=== PATIENT | female | born 1940 | race Caucasian/White ===

== ENCOUNTER → 2018-09-15 | Outpatient (CLI) | payer MEDICARE | LOC: M SLEEP 20:00 | DX: G47.33 Obstructive sleep apnea (adult) (pediatric) (principal) | CPT/HCPCS: 95811 ==

== ENCOUNTER → 2019-06-26 | Outpatient (CLI) | payer MEDICARE ==
[~2019-06-26] MED LIST: ASPI-261 PO; CO-E200C PO; D32000CA PO; EZET10TA21 PO; FURO40TA2 PO; INSUR50VL SC; LIDOCAINE 1% MDV 20ML VIAL As Ordered ONE; LOSA100T50 PO; MIRA3350 PO; SIME125T PO; VITA40TA PO; [UNRECOGNIZED DRUG - CODE] PO
[2019-06-26 11:12] VITALS: BP 150/69
--- NOTE | 2019-06-27 11:29 | REP ---
ULTRASOUND-GUIDED LIVER BIOPSY The procedure was performed under the direct supervision of Dr. Blanco. The patient has a history of a 2 cm nodule in the left hepatic lobe seen on a previous ultrasound dated 05/21/2019. The risks and benefits of the procedure were explained to the patient and informed consent was obtained. The nodule in the left lobe of the liver was localized using ultrasound guidance. The skin was prepped and draped in a sterile fashion. 1% lidocaine was used as a local anesthetic. Using ultrasound guidance a 19/20 gauge coaxial needle biopsy system was inserted and advanced into the nodule. Five core biopsy samples were obtained and sent to lab. The patient tolerated the procedure well and there were no immediate complications. After the appropriate amount of monitored convalescence the patient was discharged from the department. Reviewed by VERONIKA Vásquez 06/26/2019 04:14 P Electronically Signed by Antony Blanco MD 06/27/2019 11:21 A
== END ==
LOC: M IRPRO 08:21
PROVIDERS: ATTEND Internal Medicine Gastroenterology
DX: C22.9 Malignant neoplasm of liver, not specified as primary or secondary (principal)

== ENCOUNTER 2019-09-30 15:35 | Inpatient (IN) | payer MEDICARE ==
[~2019-09-30] VITALS: Ht 154.9 cm; Wt 116.9 kg
[~2019-09-30 15:35] MED LIST changes: -LIDOCAINE 1% MDV 20ML VIAL As Ordered ONE
[2019-09-30 19:00] LABS: HEMATOCRIT 42.4 % (36.0-47.0); HEMOGLOBIN 13.7 g/dl (12.0-15.5); MEAN CORPUSCULAR HEMOGLOBIN 32.2 pg (27.0-33.0); MEAN CORPUSCULAR HGB CONC 32.3 g/dl (32.0-36.5); MEAN CORPUSCULAR VOLUME 99.8 fl (80.0-96.0); PLATELET COUNT, AUTOMATED 266 10^3/uL (150-450); RED BLOOD COUNT 4.25 10^6/uL (4.00-5.40); WHITE BLOOD COUNT 12.9 10^3/uL (4.0-10.0)
[2019-09-30 19:30] LABS: ALBUMIN 1.9 GM/DL (3.2-5.2); ALT/SGPT 36 U/L (12-78); BILIRUBIN,TOTAL 8.9 MG/DL (0.2-1.0); BLOOD UREA NITROGEN 31 MG/DL (7-18); CARBON DIOXIDE LEVEL 27 MEQ/L (21-32); CHLORIDE LEVEL 106 MEQ/L (98-107); CREATININE FOR GFR 1.15 MG/DL (0.55-1.30); GLOMERULAR FILTRATION RATE 48.2 (>32); GLUCOSE, FASTING 94 MG/DL (70-100); POTASSIUM SERUM 4.1 MEQ/L (3.5-5.1); SODIUM LEVEL 141 MEQ/L (136-145); TOTAL PROTEIN 5.8 GM/DL (6.4-8.2)
--- NOTE | 2019-09-30 19:40 | HPEPDOC ---
[facility] Medical History & Physical Date of Admission Sep 30, 2019 Date of Service: Sep 30, 2019 Attending Physician: CORBIN WOODARD MD History and Physical TIME OF SERVICE: 8:30 PM CHIEF COMPLAINT: Loss of consciousness HISTORY OF PRESENT ILLNESS: This is an 79-year-old female who was found on the floor in her bedroom yesterday; the patient took her insulin, but went to bed without eating dinner. She remembers waking up and trying get up to get some food, but was unable to eat because she felt lightheaded and nauseous and ended up falling to the ground. She thinks she lost consciousness, and is unsure for how long she was unconscious; the event was unwitnessed. Per records from [facility] when EMS found her, her serum glucose was 50. Currently the patient is complaining of difficulty breathing, back pain and stomach distention that has been going on for a while; she was referred for paracentesis but has not made an appointment yet. 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 Insulin-dependent diabetes mellitus. Chronic hypertension GERD Dyslipidemia. Lumbar radiculopathy. Carpal tunnel syndrome SOCIAL HISTORY: She does not smoke FAMILY HISTORY: Diabetes Her daughter of colon cancer with metastases to the liver ALLERGIES: Please see below. HOME MEDICATIONS: Please see below. PHYSICAL EXAMINATION: VITAL SIGNS: Please see below. GEN: well nourished / well developed/ NAD INTEGUMENT: markedly jaundice / there is rubor, dulor and calor of the skin at the anterior abdominal wall / the skin at the lower abdomen has peau d'orange changes without rubor, dulor or calor HEENT: normocephalic / atraumatic / lips acyanotic /mucus membranes moist and p ink / she has marked scleral icterus CVS: RRR/NMRG/ / radial pulses intact /restraints lower extremity edema LUNGS: She is able to speak full sentences without stopping to take a breath / chest x-ray, singh, wheezing, even audible without the stethoscope ABDOMEN: tense ascites/the abdomen is firm and tender with palpation/am unable to palpate a liver or spleen MSK/EXTREMITIES: range of motion intact in all 4 extremities NEURO: CN 2-12 are grossly intact / speech is not dysarthric PSYCH: alert and oriented / able to understand and follow all commands LABORATORY DATA: From [facility]: WBC 13, hemoglobin 14.8, platelets 267. Sodium 142, potassium 3.8, chloride 104, bicarbonate 30, B and 30, creatinine 0.9, glucose 68. Lactic acid 2.7 IMAGING: From [facility]: CT of abdomen and pelvis revealed the presence of ascites and edema of the pannus, possibly due to cellulitis EKG: Normal sinus rhythm with a heart rate of 79 ASSESSMENT: is an 79-year-old with a past medical history of metastatic biliary cancer, IDDM, chronic hypertension, lumbar radiculopathy and GERD, who will be admitted primarily for management of hypoglycemia. PLAN: 1. Syncope, likely secondary to Hypoglycemia She has IDDM. Plan: Admit to PCU/telemetry/start D5NS, check orthostatics once/fall precautions/follow-up frequent Accu-Cheks/follow-up A1c/hypoglycemia protocol / hold anti-glycemic agents for at least the next 24 hours to give her body time to clear the insulin/diabetic diet 2. Malignant ascites. Plan: Follow-up INR/consult Dr. Mark for therapeutic paracentesis and pigta il placement 3. Dyspnea and wheezing. Possibly due to bronchitis and mass effect of ascites in the abdomen. Plan: Elevate head of bed/Follow-up respiratory panel/nebs when necessary/treat ascites/influenza, pneumococcal vaccine been ordered for tomorrow morning 4. Mild Anterior Abdominal Wall Cellulitis Her WBC # is slightly elevated Plan: PO Bactrim 5. Chronic hypertension. Plan: Continue losartan and furosemide 6. Lumbar radiculopathy. Plan: Continue trazodone / lidocane patch 7. Obesity Her BMI is 50.2 kg/m She is also diabetic This complicates care. Plan: Follow-up BMI after paracentesis/she can f/u w PCP for STOP BANG questionnaire & crepe sole scourer consult DVT prophylaxis with SCDs pending therapy paracentesis. Disposition likely home after more than 2 midnight's stay Laboratory Data Labs 24H Laboratory Tests 2 09/30/19 18:49: Nucleated Red Blood Cells % (auto) 0.0, Anion Gap 8, Glomerular Filtration Rate 48.2, Calcium Level 9.0, Total Bilirubin 8.9H, Aspartate Amino Transf (AST/SGOT) 111H, Alanine Aminotransferase (ALT/SGPT) 36, Alkaline Phosphatase 180H, Total Protein 5.8L, Albumin 1.9L, Albumin/Globulin Ratio 0.49L CBC/BMP Laboratory Tests 09/30/19 18:49 Home Medications Scheduled Pantoprazole Sodium (Pantoprazole Sodium) 40 Mg Tablet.dr, 40 MG PO DAILY Trazodone HCl (Trazodone HCl) 50 Mg Tablet, 100 MG PO QHS Scheduled PRN Hyoscyamine Sulfate (Hyoscyamine Sulfate) 0.125 Mg Tab.subl, 0.125 MG PO Q4HP PRN for TERMINAL SECRETIONS Use sublingually if unable to swallow Ibuprofen (Ibuprofen) 200 Mg Capsule, 400 MG PO Q6H PRN for PAIN Lorazepam (Lorazepam) 0.5 Mg Tablet, 0.5 MG PO Q4HP PRN for ANXIETY/AGITATION Use sublingually if unable to swallow Morphine Sulfate (Morphine Sulfate) 100 Mg/5 Ml Solution, 0.25-1 ML PO Q2H PRN for PAIN OR DYSPNEA Use sublingually if unable to swallow Allergies Coded Allergies: latex (Verified Allergy, Mild, RASH, 09/30/19) codeine (Verified Adverse Reaction, Mild, NAUSEA / VOMITTING, 09/30/19) morphine (Verified Adverse Reaction, Mild, NAUSEA / VOMITTING, 09/30/19) A-FIB/CHADSVASC A-FIB History Current/History of A-Fib/PAF?: No Current PO Anticoag Therapy: CORBIN Regan MD Sep 30, 2019 19:40
[2019-09-30] MEDS ORDERED: GLUCAGON FOR INJ 1 MG VIAL (J1610) SC PRN (19:45)
[2019-09-30] MEDS ORDERED: DEXTROSE 50% 50 ML SYRINGE IV PRN (19:45)
[2019-09-30 20:00] VITALS: BP 120/60
[2019-09-30] MEDS ORDERED: INSUR50VL SC (20:21)
[2019-09-30] MEDS ORDERED: PANT-23 PO (20:21)
[2019-09-30] MEDS ORDERED: [UNRECOGNIZED DRUG - CODE] PO (20:21)
[2019-09-30] MEDS ORDERED: D3 22000 PO (20:21)
[2019-09-30] MEDS ORDERED: IBUP200C28 PO (20:21)
[2019-09-30] MEDS ORDERED: MULTCAP PO (20:21)
[2019-09-30] MEDS ORDERED: K 10100T PO (20:21)
[2019-09-30] MEDS ORDERED: TRAZ1TAB10 PO (20:21)
[2019-09-30 20:27] LABS: TROPONIN I < 0.02 NG/ML (< 0.10)
[2019-09-30] MEDS ORDERED: HumaLOG INSULIN (NovoLOG) PER UNIT SC SCH (21:00)
[2019-09-30] MEDS: traZODone 50 MG TAB PO SCH (21:00)
[2019-09-30 21:36] LABS: INR 1.3; PROTHROMBIN TIME 15.9 SECONDS (11.8-14.0)
[2019-09-30] MEDS: GLUCOSE 4 GM CHEW TABLET PO PRN ×2 (21:48→22:11)
[2019-09-30] MEDS: D5W/0.9% SODIUM CHLORIDE 500 ML IV SCH (21:54)
[2019-09-30] MEDS: ALBUTEROL SULFATE 2.5 MG/0.5 ML INH NEB SOLN NEB PRN (22:26)
[2019-10-01] VITALS (8 sets, daily range): BP systolic 103–173; BP diastolic 49–70
[2019-10-01 00:59] LABS: HEMOGLOBIN A1c 6.9 %
[2019-10-01] MEDS: traZODone 50 MG TAB PO SCH ×2 (02:30→21:14)
[2019-10-01] MEDS: LIDOCAINE 5% (LIDODERM) PATCH TD SCH ×2 (02:31→21:13)
[2019-10-01] MEDS: BACTRIM 160MG/800MG DS TAB PO SCH ×3 (02:31→21:14)
[2019-10-01] MEDS: D5W/0.9% SODIUM CHLORIDE 500 ML IV SCH (05:19)
[2019-10-01 05:34] LABS: ALBUMIN 1.9 GM/DL (3.2-5.2); ALT/SGPT 41 U/L (12-78); BILIRUBIN,TOTAL 9.2 MG/DL (0.2-1.0); BLOOD UREA NITROGEN 34 MG/DL (7-18); CALCIUM LEVEL 8.6 MG/DL (8.8-10.2); CARBON DIOXIDE LEVEL 25 MEQ/L (21-32); CHLORIDE LEVEL 103 MEQ/L (98-107); CREATININE FOR GFR 1.37 MG/DL (0.55-1.30); GLOMERULAR FILTRATION RATE 39.4 (>32); GLUCOSE, FASTING 236 MG/DL (70-100); POTASSIUM SERUM 4.5 MEQ/L (3.5-5.1); SODIUM LEVEL 138 MEQ/L (136-145); TOTAL PROTEIN 5.6 GM/DL (6.4-8.2); TROPONIN I < 0.02 NG/ML (< 0.10)
[2019-10-01] MEDS ORDERED: HumaLOG INSULIN (NovoLOG) PER UNIT SC SCH ×4 (06:00→21:00)
[2019-10-01] MEDS: PROPRANOLOL 20 MG TAB PO SCH ×2 (08:53→21:13)
[2019-10-01] MEDS: ASPIRIN 325 MG TAB PO SCH (08:53)
[2019-10-01] MEDS: amLODIPine 5 MG TAB PO SCH (08:54)
[2019-10-01] MEDS: PANTOPRAZOLE 40MG TAB (PROTONIX) PO SCH (08:54)
[2019-10-01] MEDS: EZETIMIBE 10 MG TAB (ZETIA) PO SCH (08:54)
[2019-10-01] MEDS: MIRALAX *UNIT DOSE* 17GM PACKET PO SCH (08:54)
[2019-10-01] MEDS ORDERED: PHYTONADIONE 5 MG TAB PO SCH (09:00)
[2019-10-01] MEDS: **NOTE PATIENT COMMENT** MISC XX SCH (09:00)
[2019-10-01] MEDS ORDERED: FUROSEMIDE 40 MG TAB PO SCH (09:00)
[2019-10-01] MEDS ORDERED: FLUBLOK(EGG FREE)(QUAD)INFLUENZA VACC 0.5ML SYRINGE (90682)18YRS&OLDER IM ONE (09:00)
[2019-10-01] MEDS ORDERED: PREVNAR 13 VACCINE SYRINGE (CPT CODE:90670) IM ONE (09:00)
[2019-10-01] MEDS ORDERED: VITAMIN K 100 MCG PO SCH (09:00)
[2019-10-01] MEDS ORDERED: LOSARTAN 50 MG TAB PO SCH (09:00)
--- NOTE | 2019-10-01 10:05 | IPNPDOC ---
Text Note Date of Service The patient was seen on 10/01/19. NOTE SUBJECTIVE: Patient is seen at bedside. She continues to complain of abdominal distention, difficulty breathing, and back pain. She'll be going to get a Pleurx catheter/paracentesis with Dr. Mark this afternoon at 4:30. She denies any fevers. Her sugars have improved overnight, and this morning her point of care glucose was 252. Objective: VITAL SIGNS: Please see below. GENERAL: Elderly female, lying in bed, audible wheezing is noted that she is not in any acute distress INTEGUMENT: Area of erythema that is warm to touch on the anterior abdominal wall. HEENT: normocephalic / atraumatic / lips acyanotic /mucus membranes moist and pink / she has marked scleral icterus HEART: Heart sounds are faint but no murmurs, rubs, or gallops are appreciated. Regular rate and rhythm LUNGS: Diffuse expiratory and inspiratory wheezes. No rhonchi or rales. ABDOMEN: Distended with tense ascites. Tympanic to percussion. EXTREMITIES: Bilateral 2+ pitting edema in the lower extremities up to the knee, worse on the right leg which is the side she is laying on NEURO: Sensation intact throughout, 5 out of 5 muscle strength in each extremity, cranial nerves II through XII grossly intact, no asterixis is noted PSYCH: Answers questions appropriately LABORATORY DATA: See below ASSESSMENT: is an 79-year-old with a past medical history of metastatic biliary cancer, IDDM, chronic hypertension, lumbar radiculopathy and GERD, who will be admitted primarily for management of hypoglycemia. PLAN: 1. Syncope, likely secondary to Hypoglycemia. Sugars have improved overnight, point of care glucose this morning at 9 AM was 252. Sliding scale insulin discontinued in favor of basal insulin with Levemir 5 units twice a day, to be adjusted accordingly. A1c was 6.9. 2. Malignant ascites. Dr. Mark consulted, appreciate her help. Will be going down at 4:30 PM to get a Pleurx catheter/paracentesis. 3. Dyspnea and wheezing. Proventil nebs as needed. Shortness of breath most likely due to increased intra-abdominal pressure from her ascites. 4. Mild Anterior Abdominal Wall Cellulitis. Continue by mouth Bactrim 5. Chronic hypertension. Home Lasix and Cozaar held in favor of amlodipine and propranolol. Will reassess after her paracentesis is afternoon. 6. Lumbar radiculopathy. Continue trazodone and lidocaine patch. 7. Obesity. Complicating care DVT prophylaxis with SCDs pending therapy paracentesis. Disposition: Pending clinical improvement and optimization of her anti-glycemic agents, possibly the next 24-48 hours. VS,Fishbone, I+O VS, Fishbone, I+O Laboratory Tests 09/30/19 18:49 10/01/19 04:41 Vital Signs Date Time Temp Pulse Resp B/P (MAP) Pulse Ox O2 Delivery O2 Flow Rate FiO2 10/01/19 08:53 91 150/67 10/01/19 04:00 98.6 22 96 Room Air I&O- Last 24 Hours up to 6 AM 10/01/19 06:00 Intake Total 280 ml Output Total 0 ml Balance 280 ml GME ATTESTATION GME ATTESTATION My faculty preceptor for this patient encounter was physically present during the encounter and was fully available. All aspects of the patient interview, examination, medical decision making process, and medical care plan development were reviewed and approved by the faculty preceptor. The faculty preceptor is aware and concurs with the plan as stated in the body of this note and will attest to such by his/her cosignature. JOSE NICHOLS D.O. Oct 01, 2019 10:05
[2019-10-01] MEDS: LEVEMIR (INSULIN DETEMIR) 1 UNITS/0.01ML SC SCH ×2 (10:11→21:13)
[2019-10-01] MEDS: UNRESOLVED PATIENT OWN MED ORDER XX SCH (10:12)
[2019-10-01] MEDS: ALBUTEROL SULFATE 2.5 MG/0.5 ML INH NEB SOLN NEB PRN (10:14)
[2019-10-01] MEDS ORDERED: LIDOCAINE 1% MDV 20ML VIAL As Ordered ONE (15:42)
[2019-10-01] MEDS ORDERED: ceFAZolin 1GM INJ (J0690 PER 500MG) As Ordered ONE (15:56)
[2019-10-01] MEDS ORDERED: MIDAZOLAM INJ 2 MG/2 ML VIAL (J2250) As Ordered ONE (15:56)
[2019-10-01] MEDS ORDERED: fentaNYL 100 MCG/2 ML INJECTION (J3010) As Ordered ONE (15:56)
[2019-10-01] MEDS ORDERED: diphenhydrAMINE INJ 50MG/ML VIAL (J1200) As Ordered ONE (15:57)
--- NOTE | 2019-10-01 16:43 | POST-OPPD ---
Postoperative Procedure Note Date Of Procedure: Oct 01, 2019 Time Of Procedure: 16:42 PREOPERATIVE DIAGNOSIS: refractory ascites. liver cancer POSTOPERATIVE DIAGNOSIS: same FINDINGS: ascites PROCEDURE: pleurX placed SURGEON: hayde ANESTHESIA: local ESTIMATED BLOOD LOSS: < 5 ml COMPLICATIONS: none POSTOPERATIVE CONDITION: stable VELMA OSMAN MD Oct 01, 2019 16:43
[2019-10-01 18:49] LABS: BILIRUBIN, URINE MANUAL OBSCURED (NEGATIVE); GLUCOSE, URINE (UA) MANUAL OBSCURED mg/dL (NEGATIVE); KETONE, URINE MANUAL OBSCURED mg/dL (NEGATIVE); UROBILINOGEN, URINE MANUAL OBSCURED mg/dl (NORMAL)
[2019-10-01 19:03] LABS: AMORPHOUS SEDIMENT, URINE MOD AMOUNT (NEGATIVE); MUCUS, URINE MOD AMOUNT (NEGATIVE); SQUAMOUS EPITHELIAL CELL URINE MOD AMOUNT /hpf (SMALL AMT); TRANSITIONAL EPI CELLS, URINE MOD AMOUNT /hpf
[2019-10-01 19:04] LABS: HYALINE CAST, URINE TNTC /lpf (0-1)
[2019-10-01 19:05] LABS: BACTERIA, URINE SMALL AMOUNT
[2019-10-02] VITALS (13 sets, daily range): BP systolic 90–137; BP diastolic 45–60
[2019-10-02] MEDS: UNRESOLVED PATIENT OWN MED ORDER XX SCH (00:01)
[2019-10-02 05:39] LABS: HEMATOCRIT 43.1 % (36.0-47.0); HEMOGLOBIN 13.5 g/dl (12.0-15.5); MEAN CORPUSCULAR HEMOGLOBIN 32.3 pg (27.0-33.0); MEAN CORPUSCULAR HGB CONC 31.3 g/dl (32.0-36.5); MEAN CORPUSCULAR VOLUME 103.1 fl (80.0-96.0); PLATELET COUNT, AUTOMATED 216 10^3/uL (150-450); RED BLOOD COUNT 4.18 10^6/uL (4.00-5.40); WHITE BLOOD COUNT 12.2 10^3/uL (4.0-10.0)
[2019-10-02 06:05] LABS: ALBUMIN 1.7 GM/DL (3.2-5.2); BILIRUBIN,TOTAL 10.8 MG/DL (0.2-1.0); CALCIUM LEVEL 8.4 MG/DL (8.8-10.2); CREATININE FOR GFR 2.04 MG/DL (0.55-1.30); GLOMERULAR FILTRATION RATE 24.9 (>32); TOTAL PROTEIN 5.7 GM/DL (6.4-8.2)
--- NOTE | 2019-10-02 08:12 | REP ---
IR Ultrasound and fluoroscopy-guided abdominal PleurX placement. IR Ultrasound of the abdomen. Clinical information: Ascites. Liver cancer. Physician: Dr. Mark. Procedure: The patient was advised of the benefits, risks, and alternatives of the procedure and informed consent was obtained. A time-out was performed with verification of the patient's name, MRN, site of procedure and type of procedure to be performed. The patient was positioned in the supine position on the angiographic table. The site was prepped and draped in the usual sterile fashion. Moderate sedation was not appropriate given respiratory status but Fentanyl was administered for analgesia. The physician spent 45 minutes of continuous face to face time with the patient. Limited ultrasound of the abdomen reveals large volume ascites. A grocery store clerk radiograph reveals no gross abnormality. The anticipated puncture site was identified using sonographic guidance and the overlying skin and subcutaneous tissues were anesthetized with lidocaine. An 18 gauge needle was inserted under ultrasound guidance into the right upper quadrant. An Amplatz wire was advanced through the needle under fluoroscopy guidance into the peritoneum. The needle was removed and exchanged for a dilator, under fluoroscopy guidance. A small skin incision was made at the catheter insertion site. A second incision was made a small distance from original incision. The catheter was then subcutaneously tunneled from the exit site incision to the insertion site incision. The catheter insertion site was then serially dilated under fluoroscopy guidance and a peel-away sheath was then placed. The catheter was then passed through the peel-away sheath into the peritoneal cavity and the peel away sheath was removed. Placement in the peritoneal cavity was confirmed by the brisk return of ascetic fluid. 5.4 liters of ascitic fluid was drained. The dedicated catheter drainage cap was attached. The catheter insertion site was closed with monocryl. A sterile dressing was applied. The patient tolerated the procedure well and was returned to the PRU in stable condition. EBL: < 5 ml. Complications: None. Conclusion: 1. Ultrasound abdomen demonstrates ascites. 2. Successful placement of a tunneled peritoneal drainage catheter in the right upper quadrant. The patient requires dressing changes and drainage kit for drainage as-needed. Thank you for this referral. Electronically Signed by Trina Mark MD 10/02/2019 08:10 A
[2019-10-02] MEDS: amLODIPine 5 MG TAB PO SCH (09:00)
[2019-10-02] MEDS: PROPRANOLOL 20 MG TAB PO SCH (09:00)
[2019-10-02] MEDS ORDERED: UNRESOLVED PATIENT OWN MED ORDER XX SCH (09:00)
[2019-10-02] MEDS: LEVEMIR (INSULIN DETEMIR) 1 UNITS/0.01ML SC SCH (09:35)
[2019-10-02] MEDS: MIRALAX *UNIT DOSE* 17GM PACKET PO SCH (09:36)
[2019-10-02] MEDS: EZETIMIBE 10 MG TAB (ZETIA) PO SCH (09:36)
[2019-10-02] MEDS: ASPIRIN 325 MG TAB PO SCH (09:36)
[2019-10-02] MEDS: HumaLOG INSULIN (NovoLOG) PER UNIT SC SCH ×2 (09:36→13:13)
[2019-10-02] MEDS: **NOTE PATIENT COMMENT** MISC XX SCH (09:36)
[2019-10-02] MEDS: PANTOPRAZOLE 40MG TAB (PROTONIX) PO SCH (09:36)
[2019-10-02] MEDS: BACTRIM 160MG/800MG DS TAB PO SCH (09:36)
[2019-10-02] MEDS: ACETAMINOPHEN TAB 650MG DOSE (2X325MG) PO PRN (09:40)
--- NOTE | 2019-10-02 10:45 | IPNPDOC ---
Text Note Date of Service The patient was seen on 10/02/19. NOTE SUBJECTIVE: Patient was seen at bedside this morning. She continues to complain of abdominal distention, difficulty breathing, and back pain. Dr. Mark successfully placed a Pleurx catheter yesterday. The paracentesis performed during that procedure drained 5400 ml of ascitic fluid. Her point of care glucose last night at 21:02 was 216. Patient has no additional complaints this morning. The subject of hospice care was broached with the patient. She will need additional care and her prognosis is poor. She would like to discuss this subject with her daughter and sister who are visiting today. Objective: VITAL SIGNS: Please see below. GENERAL: Patient is an elderly female lying in bed in no apparent acute distress. HEENT: Normocephalic/atraumatic. Mucus membranes moist and pink. Scleral icterus present. HEART: Heart sounds are faint. Regular rate and rhythm. No murmurs, rubs, or gallops. LUNGS: Diffuse expiratory and inspiratory wheezes. No rhonchi or rales. ABDOMEN: Distended and tense. Bowel sounds present in all four quadrants. Tenderness noted far lateral left lower quadrant. Tympanic to percussion. PleurX catheter is in place beneath gauze bandaging in the upper right quadrant. The bandage was not removed for exam. There is no skin discoloration around the bandaging and no fluid leakage apparent into the gauze. Patient has a prominent umbilical hernia at the superior border of the umbilicus. EXTREMITIES: Bilateral 2+ pitting edema in both lower extremities up to the knee, worse on the left leg today PSYCH: Patient is pleasant and cooperative. She answers questions appropriately. LABORATORY DATA: See below ASSESSMENT: Patient is an 79-year-old female with a past medical history of metastatic biliary cancer, IDDM, chronic hypertension, lumbar radiculopathy, and GERD, who is admitted and being managed for hypoglycemia. PLAN: 1. Syncope, likely secondary to Hypoglycemia - Point of care blood glucose last night at 21:02 was 216. Her Levemir will be increased to 8 units twice a day for improved control. 2. Malignant ascites - Dr. Mark was consulted, and she placed a PleurX catheter and performed paracentesis. Her assistance is appreciated. 3. Dyspnea and wheezing - Proventil nebs as needed. Dyspnea most likely secondary to increased intra- abdominal pressure from her ascites. 4. Mild Anterior Abdominal Wall Cellulitis - Continue Bactrim 5. Chronic hypertension - Lasix and Cozaar continue to be held - Continue amlodipine and propranolol - Blood pressure was 90/50 this morning at 09:15 6. Lumbar radiculopathy - Continue trazodone and lidocaine patch 7. Obesity - Complicates care 8. DVT prophylaxis - SCDs Disposition: Pending conversation with her family, prognosis is guarded. Hospice vs. home with services is being discussed. VS,Fishbone, I+O VS, Fishbone, I+O Laboratory Tests 10/02/19 05:18 Vital Signs Date Time Temp Pulse Resp B/P (MAP) Pulse Ox O2 Delivery O2 Flow Rate FiO2 10/02/19 09:15 97.0 64 20 90/50 92 Room Air 10/01/19 17:00 2 I&O- Last 24 Hours up to 6 AM 10/02/19 05:59 Intake Total 0 ml Output Total 450 ml Balance -450 ml GME ATTESTATION GME ATTESTATION My faculty preceptor for this patient encounter was physically present during the encounter and was fully available. All aspects of the patient interview, examination, medical decision making process, and medical care plan development were reviewed and approved by the faculty preceptor. The faculty preceptor is aware and concurs with the plan as stated in the body of this note and will at test to such by his/her cosignature. BHAVIK MUSA OMS-III Oct 02, 2019 10:42
[2019-10-02] MEDS: ALBUTEROL SULFATE 2.5 MG/0.5 ML INH NEB SOLN NEB PRN (11:40)
[2019-10-02] MEDS ORDERED: NS 250 ML IV ONE (12:00)
[2019-10-02] MEDS ORDERED: CEPHALEXIN 500 MG CAP PO SCH (13:00)
[2019-10-02] MEDS: NYSTATIN 100,000 UNITS/GM TOPICAL PWD 15 GM TOP SCH ×2 (13:00→20:11)
--- NOTE | 2019-10-02 13:46 | REP ---
CT abdomen pelvis without IV or oral contrast: History: Liver cancer, renal failure. 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 Comparison CT study May 31, 2019. CT findings: Digital preliminary machinist 2nd shift radiograph demonstrates mild gaseous distension of the transverse colon question ileus. There is a drainage catheter in right upper quadrant. There is a small left pleural effusion. Some atelectatic changes are seen in the left lower lobe. There is mild diffuse abdominal ascites. A peritoneal drainage catheter is noted in place coursing into Morison's pouch region and along the right flank and perihepatic region. There is diffuse extra abdominal subcutaneous edema. A ventral hernia is seen transmitting abdominal fat into the umbilicus. No liver mass lesion is visible on the noncontrast CT study. There is no evidence of abdominal hematoma. Spleen is unremarkable. No adrenal lesion is observed. There are left upper quadrant vascular collaterals question portal hypertension. These are unchanged. No retroperitoneal mass or adenopathy is observed. The kidneys enhance symmetrically and are morphologically intact. No evidence of free air. Uterus is surgically absent. Urinary bladder is unremarkable. No bony destructive lesion is seen. Impression: Mild ascites. Mild gaseous distension of the transverse colon question mild ileus. Ventral hernia in the umbilicus transmits abdominal fat. Electronically Signed by Charbel Ellsworth MD 10/02/2019 05:40 P
[2019-10-02] MEDS ORDERED: MIRALAX *UNIT DOSE* 17GM PACKET PO SCH (15:15)
[2019-10-02] MEDS ORDERED: HYOSCYAMINE SULFATE 0.125 MG SUBL TABLET SL PRN (15:15)
[2019-10-02] MEDS ORDERED: LORazepam 2 MG/ML VIAL (J2060) IV PRN (15:15)
--- NOTE | 2019-10-02 16:02 | IPNPDOC ---
Text Note Date of Service The patient was seen on 10/02/19. NOTE Patient was seen at bedside and the discussion was held with her, her healthcare proxies, and her daughter by telephone. Family was at bedside as well. Patient wishes to become hospice, as well as comfort measures only. In accordance with the patient's wishes, a hospice consult has been placed in measures of been taken to make her comfortable. Greater than 30 minutes was spent discussing end-of-life decision making and advanced directives VS,Fishbone, I+O VS, Fishbone, I+O Laboratory Tests 10/02/19 05:18 Vital Signs Date Time Temp Pulse Resp B/P (MAP) Pulse Ox O2 Delivery O2 Flow Rate FiO2 10/02/19 11:33 97.9 63 22 90/45 92 Room Air 10/01/19 17:00 2 I&O- Last 24 Hours up to 6 AM 10/02/19 06:00 Intake Total 0 ml Output Total 450 ml Balance -450 ml GME ATTESTATION GME ATTESTATION My faculty preceptor for this patient encounter was physically present during the encounter and was fully available. All aspects of the patient interview, examination, medical decision making process, and medical care plan development were reviewed and approved by the faculty preceptor. The faculty preceptor is aware and concurs with the plan as stated in the body of this note and will attest to such by his/her cosignature. JOSE NICHOLS D.O. Oct 02, 2019 16:02
[2019-10-02] MEDS: traZODone 50 MG TAB PO SCH (20:11)
[2019-10-02] MEDS: LIDOCAINE 5% (LIDODERM) PATCH TD SCH (20:11)
[2019-10-02] MEDS ORDERED: LEVEMIR (INSULIN DETEMIR) 1 UNITS/0.01ML SC SCH (21:00)
[2019-10-03] MEDS: PANTOPRAZOLE 40MG TAB (PROTONIX) PO SCH (10:06)
[2019-10-03] MEDS: **NOTE PATIENT COMMENT** MISC XX SCH (10:06)
[2019-10-03] MEDS: NYSTATIN 100,000 UNITS/GM TOPICAL PWD 15 GM TOP SCH ×2 (10:06→20:43)
[2019-10-03] MEDS: IPRATROPIUM 0.5MG/ALBUTEROL 2.5MG INH SOL UD 3ML (DUONEB)(J7620) NEB PRN ×2 (13:24→23:30)
[2019-10-03] MEDS ORDERED: MORP20SO3 PO (16:36)
[2019-10-03] MEDS ORDERED: LORA0.5T11 PO (16:36)
[2019-10-03] MEDS ORDERED: HYOS125TA PO (16:36)
--- NOTE | 2019-10-03 17:53 | IPNPDOC ---
Text Note Date of Service The patient was seen on 10/03/19. NOTE Subjective: Patient seen at bedside, she is resting comfortably and has no acute concerns at this time. Objective: Jaundiced elderly female in no acute distress, resting comfortably. Assessment: 79-year-old female with primary biliary carcinoma and liver met astasis with malignant ascites. Plan: Discharge to hospice house tomorrow. Comfort measures only. VS,Fishbone, I+O VS, Fishbone, I+O Vital Signs Date Time Temp Pulse Resp B/P (MAP) Pulse Ox O2 Delivery O2 Flow Rate FiO2 10/02/19 16:00 98.0 64 20 101/60 (74) 94 Room Air 10/01/19 17:00 2 I&O- Last 24 Hours up to 6 AM 10/03/19 06:00 Intake Total 920.0 ml Output Total 500 ml Balance 420.0 ml GME ATTESTATION GME ATTESTATION My faculty preceptor for this patient encounter was physically present during the encounter and was fully available. All aspects of the patient interview, examination, medical decision making process, and medical care plan development were reviewed and approved by the faculty preceptor. The faculty preceptor is aware and concurs with the plan as stated in the body of this note and will attest to such by his/her cosignature. JOSE NICHOLS D.O. Oct 03, 2019 17:53
[2019-10-03] MEDS: traZODone 50 MG TAB PO SCH (20:41)
[2019-10-03] MEDS: LIDOCAINE 5% (LIDODERM) PATCH TD SCH (20:42)
[2019-10-03] MEDS: ACETAMINOPHEN TAB 650MG DOSE (2X325MG) PO PRN (20:49)
[2019-10-04] MEDS: PANTOPRAZOLE 40MG TAB (PROTONIX) PO SCH (10:06)
[2019-10-04] MEDS: **NOTE PATIENT COMMENT** MISC XX SCH (10:07)
[2019-10-04] MEDS: NYSTATIN 100,000 UNITS/GM TOPICAL PWD 15 GM TOP SCH (10:07)
--- NOTE | 2019-10-04 19:29 | DSES ---
DATE OF ADMISSION: 09/30/2019 DATE OF DISCHARGE: 10/04/2019 My preceptor for this encounter is Dr. Nilson Nelson. DISCHARGE DIAGNOSES: 1. Syncope, likely secondary to hypoglycemia. 2. 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 3. Mild anterior abdominal wall cellulitis. CONSULTANTS: 1. Dr. Trina Moralesjee [facility] COURSE: This is an 79-year-old female who was found on the floor of her bedroom on 09/29/2019. She has a past medical history significant for type 2 diabetes and is on insulin, and she had taken her insulin but failed to eat dinner before going to bed. She had remembered waking up and trying to get some food, then feeling lightheaded and nauseous and ended up falling to the ground. She believes that she had lost consciousness and was unsure for how long she was out given the event was unwitnessed. Per records from [facility], when emergency medical services (EMS) found her, her serum glucose was 50. 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 She had been referred for paracentesis but had not made an appointment as of her admission to [facility]. She was transferred to [facility] due to lack of interventional radiology for a paracentesis and placement of a PleurX catheter. She was admitted to progressive care unit (PCU) with telemetry and her antihyperglycemic agents were held. On the second day of hospitalization at [facility], she had a PleurX catheter placed and approximately 5-1/2 liters was removed. Her blood pressure continued to be somewhat labile as she was third spacing into her abdomen. A discussion was held with the family and the patient who elected to go to hospice house given her poor prognosis. On 10/04/2019, she was discharged to the hospice house for end-of-life care. PHYSICAL EXAMINATION: Vital signs: Temperature 98.0, pulse 64 and regular, respiratory rate 20, blood pressure 101/60, 94% on room air (last set of vital signs was 10/02/2019 as the patient had elected to become comfort measures only after that time). General: This is an elderly female lying in bed. She is not in any acute distress. Integumentary: Visibly jaundiced. HEENT: Normocephalic, atraumatic. Lips were acyanotic and mucous membranes were moist. She had marked scleral icterus. Heart: Regular rate and rhythm. No murmurs, gallops or rubs. Lungs: Diffuse inspiratory and expiratory wheezes without rhonchi or rales. Abdomen: Distended with ascites. Tympanic to percussion. Extremities: Bilateral 2+ pitting edema in the lower extremities up to the knee. Neurologic: Sensation intact throughout, 5/5 muscle strength in each extremity. Cranial nerves II-XII grossly intact. No asterixis noted. Psychiatric: Answers questions appropriately. DISCHARGE MEDICATIONS: - hyoscyamine sulfate 0.125 mg by mouth every 4 hours as needed for terminal secretions - lorazepam 0.5 mg by mouth every 4 hours as needed for anxiety or agitation - morphine sulfate 0.25 to 1 mL by mouth every 2 hours as needed for pain or dyspnea - Motrin 400 mg by mouth every 6 hours as needed for pain - Protonix 40 mg by mouth daily - trazodone 100 mg by mouth nightly LABORATORY DATA: CBC: WBC 12.2, hemoglobin 13.5, hematocrit 43.1, platelets 216. Chemistry: Sodium 135, potassium 5.0, chloride 107, carbon dioxide 21, BUN 46, creatinine 2.04, fasting glucose 258, calcium 8.4, total bilirubin is 10.8, AST 113, ALT 38, alkaline phosphatase 165, ammonia 34, troponin less than 0.02, total protein 5.7, albumin 1.7. Coagulation: PT 15.9, INR 1.3. Urine: Shirlene in color with a hazy appearance and a pH that was obscured,5-7 urine RBCs, 10-15 urine WBCs with squamous epithelial cells, transition epithelial cells, amorphous sediment, small amount of urine bacteria, hyaline casts, granular casts, WBC casts and urine mucus. Urine culture: Negative. Amount of albumin transfused was 5 units. IMAGING: Guided fluoroscopy done 10/01/2019 showed ultrasound abdomen with ascites, successful placement of a tunneled peritoneal drainage catheter in the right upper quadrant. CT abdomen and pelvis done 10/02/2019 showed mild ascites, mild gaseous distension of the transverse colon, question mild ileus, ventral hernia in the umbilicus transmitting abdominal fat. ACTIVITY: As tolerated. DIET: As tolerated. DISPOSITION: Stable. Greater than 30 minutes spent on discharge.
== END 2019-10-04 11:15 | disposition hospice, home (50) | DRG 638 ==
LOC: M PCU 18:33 → M MSPAV 10-02 17:51
PROVIDERS: ADMIT Student in an Organized Health Care Education/Training Program; ATTEND Internal Medicine
PROC: 0W9G30Z Drainage of Peritoneal Cavity with Drainage Device, Percutaneous Approach (ICD-10-PCS; principal; 2019-10-01 16:30)
DX: E11.649 Type 2 diabetes mellitus with hypoglycemia without coma (principal); C24.9 Malignant neoplasm of biliary tract, unspecified; C78.7 Secondary malignant neoplasm of liver and intrahepatic bile duct; R18.0 Malignant ascites; L03.311 Cellulitis of abdominal wall; Z68.42 Body mass index [BMI] 45.0-49.9, adult; I10 Essential (primary) hypertension; K21.9 Gastro-esophageal reflux disease without esophagitis; E78.5 Hyperlipidemia, unspecified; M54.16 Radiculopathy, lumbar region; R06.00 Dyspnea, unspecified; E66.9 Obesity, unspecified; Z79.899 Other long term (current) drug therapy; Z91.040 Latex allergy status; Z88.6 Allergy status to analgesic agent; Z51.5 Encounter for palliative care; Z66 Do not resuscitate; Z79.4 Long term (current) use of insulin